=== PATIENT | male | born 1945 | race Hispanic/Latino ===

== ENCOUNTER 2023-05-26 08:39 | Outpatient (CLI) | payer OTHER ==
[2023-05-26] MEDS ORDERED: Iopamidol 370 76% 100 ML VIAL ONE (10:53)
== END 2023-05-26 08:40 | disposition home or self-care (01) ==
LOC: CT 08:39
PROVIDERS: ATTEND Radiology Radiation Oncology
DX: C32.0 Malignant neoplasm of glottis (principal)
CPT/HCPCS: 71260; 82565; Q9967